=== PATIENT | female | born 1935 | race Caucasian/White ===

== ENCOUNTER 2017-06-01 15:15 | Outpatient (CLI) | payer MEDICARE, OTHER ==
[2017-06-01 12:20] LABS: BASOPHILS # (AUTO) 0.1 10^3/uL (0.0-0.1); BASOPHILS % (AUTO) 0.7 %; EOSINOPHILS # (AUTO) 0.2 10^3/uL (0.0-0.7); HGB - HEMOGLOBIN 14.5 g/dL (12.0-16.0); LYMPHOCYTES % (AUTO) 38.7 %; MEAN CORPUSCULAR HEMOGLOBIN 31.9 pg (27.0-31.0); MEAN CORPUSCULAR HGB CONC 33.1 g/dL (32.0-36.0); MEAN CORPUSCULAR VOLUME 96.4 fL (81.0-99.0); MEAN PLATELET VOLUME 9.2 fL (7.9-10.8); MONOCYTES # (AUTO) 0.6 10^3/uL (0.0-1.0); MONOCYTES % (AUTO) 7.4 %; NEUTROPHILS # (AUTO) 3.9 10^3/uL (1.5-6.6); NEUTROPHILS % (AUTO) 50.2 %; NUCLEATED RED BLOOD CELLS AUTO 0.1 /100WBC; RED BLOOD COUNT 4.56 10^6/uL (4.20-5.40); RED CELL DISTRIBUTION WIDTH 14.4 % (12.0-15.0); UNCORRECTED WHITE BLOOD COUNT 7.7 x10^3/uL; WHITE BLOOD COUNT 7.7 x10^3/uL (4.8-10.8)
[2017-06-01 12:43] LABS: ALBUMIN/GLOBULIN RATIO 1.3 (1.0-2.2); BILIRUBIN,TOTAL 0.7 mg/dL (0.2-1.0); BUN - BLOOD UREA NITROGEN 28 mg/dL (6-20); CALCIUM 8.8 mg/dL (8.5-10.3); CARBON DIOXIDE - CO2 27 mmol/L (21-32); CHLORIDE 105 mmol/L (101-111); CHOL/HDL RATIO 3.4 (<4.4); CHOLESTEROL 197 mg/dL; CREATININE 0.7 mg/dL (0.4-1.0); GFR - MDRD 81 (>89); GLUCOSE 97 mg/dL (70-100); HDL CHOLESTEROL 58 mg/dL; LDL/HDL RATIO 2.1 (<4.4); POTASSIUM 4.3 mmol/L (3.5-5.0); SODIUM 137 mmol/L (135-145); TOTAL PROTEIN 6.9 g/dL (6.7-8.2); TRIGLYCERIDES 88 mg/dL; VLDL CHOLESTEROL 18 mg/dL
== END 2017-06-01 15:16 | disposition home or self-care (01) ==
LOC: LAB.N 15:15
PROVIDERS: ATTEND Internal Medicine
DX: E78.5 Hyperlipidemia, unspecified (principal); I10 Essential (primary) hypertension; Z79.899 Other long term (current) drug therapy
CPT/HCPCS: 36415; 80053; 80061; 85025

== ENCOUNTER 2017-06-06 10:32 | Outpatient (CLI) | payer MEDICARE, OTHER ==
--- NOTE | 2017-06-07 08:35 | DEXA Report ---
DEXA: 06/06/2017 CLINICAL INDICATION: Postmenopausal. TECHNIQUE: Dual energy x-ray absorptiometry (DXA) was performed on a [employer] system. Regions measured are the AP spine, femoral neck, and, if needed, forearm. COMPARISON: None. In accordance with the International Society for Clinical Densitometry (ISCD) guidelines, data from previous exams may be reanalyzed using current recommendations and techniques. This is done to allow a more accurate basis for comparison with the current study. FINDINGS LUMBAR SPINE DATA: REGION BMD (g/cm/cm) T-SCORE Z-SCORE L1 0.783 -2.9 -1.3 L2 0.836 -3.0 -1.5 L3 0.966 -2.0 -0.4 L4 1.046 -1.3 0.3 TOTAL L1-L4 0.920 -2.2 -0.6 NOTE: All evaluable vertebrae are used for classification. HIP DATA: REGION BMD (g/cm/cm) T-SCORE Z-SCORE Neck 0.836 -1.5 0.5 TOTAL 0.860 -1.2 0.6 NOTE: The femoral neck or total proximal femur, whichever is lowest, is used for classification. IMPRESSION THE WHO CLASSIFICATION BASED ON THE INTERNATIONAL REFERENCE STANDARD: OSTEOPENIA. FRACTURE RISK: INCREASED. RECOMMENDATION: Patients with diagnosis of osteoporosis or osteopenia should have regular bone mineral density assessment. For those eligible for Medicare, routine testing is allowed once every 2 years. Testing frequency can be increased for patients who have rapidly progressing disease or for those who are receiving medical therapy to restore bone mass. COMMENT: World Health Organization (WHO) definitions for osteoporosis and osteopenia: NORMAL BMD: T-score at -1.0 or higher, fracture risk is low. OSTEOPENIA BMD: T-score between -1.0 and -2.5, fracture risk is increased. OSTEOPOROSIS BMD: T-score at -2.5 or lower, fracture risk high. National Osteoporosis Foundation recommends: 1. Obtain adequate dietary calcium (at least 1200 mg per day) and vitamin D (400 -800 international units per day). 2. Participate, as appropriate, in regular weightbearing and muscle- strengthening exercise. 3. Avoid tobacco use and reduce alcohol and caffeine intake. 4. For more detailed information see the website at www.NOF.org. MTDD
== END 2017-06-06 10:33 | disposition home or self-care (01) ==
LOC: DI 10:32
PROVIDERS: ATTEND Internal Medicine
DX: M85.89 Other specified disorders of bone density and structure, multiple sites (principal)
CPT/HCPCS: 77080

== ENCOUNTER 2018-06-26 08:07 | Outpatient (CLI) | payer MEDICARE, OTHER ==
[2018-06-26 14:37] LABS: BASOPHILS # (AUTO) 0.1 10^3/uL (0.0-0.1); BASOPHILS % (AUTO) 0.7 %; EOSINOPHILS # (AUTO) 0.5 10^3/uL (0.0-0.7); EOSINOPHILS % (AUTO) 5.9 %; HGB - HEMOGLOBIN 15.3 g/dL (12.0-16.0); LYMPHOCYTES # (AUTO) 3.2 10^3/uL (1.5-3.5); LYMPHOCYTES % (AUTO) 40.7 %; MEAN CORPUSCULAR HEMOGLOBIN 32.9 pg (27.0-31.0); MEAN CORPUSCULAR HGB CONC 33.9 g/dL (32.0-36.0); MEAN CORPUSCULAR VOLUME 96.9 fL (81.0-99.0); MEAN PLATELET VOLUME 9.2 fL (7.9-10.8); MONOCYTES # (AUTO) 0.5 10^3/uL (0.0-1.0); NEUTROPHILS # (AUTO) 3.7 10^3/uL (1.5-6.6); NEUTROPHILS % (AUTO) 46.7 %; PLT - PLATELET COUNT 460 10^3/uL (130-450); RED BLOOD COUNT 4.64 10^6/uL (4.20-5.40); RED CELL DISTRIBUTION WIDTH 15.4 % (12.0-15.0); WHITE BLOOD COUNT 7.9 x10^3/uL (4.8-10.8)
[2018-06-26 15:03] LABS: ALBUMIN 3.9 g/dL (3.2-5.5); ALBUMIN/GLOBULIN RATIO 1.2 (1.0-2.2); ALKALINE PHOSPHATASE 75 IU/L (42-121); ALT ALANINE AMINOTRANSFERASE 19 IU/L (10-60); AST ASPARTATE AMINOTRANSFERASE 23 IU/L (10-42); BILIRUBIN,TOTAL 0.7 mg/dL (0.2-1.0); BUN - BLOOD UREA NITROGEN 22 mg/dL (6-20); CALCIUM 9.1 mg/dL (8.5-10.3); CARBON DIOXIDE - CO2 28 mmol/L (21-32); CHLORIDE 105 mmol/L (101-111); CHOL/HDL RATIO 3.1 (<4.4); CHOLESTEROL 196 mg/dL; CREATININE 0.7 mg/dL (0.4-1.0); GFR - MDRD 80 (>89); GLUCOSE 92 mg/dL (70-100); HDL CHOLESTEROL 63 mg/dL; LDL CHOLESTEROL,CALCULATED 115 mg/dL; LDL/HDL RATIO 1.8 (<4.4); SODIUM 140 mmol/L (135-145); TOTAL PROTEIN 7.1 g/dL (6.7-8.2); VLDL CHOLESTEROL 18 mg/dL
== END 2018-06-26 23:59 | disposition home or self-care (01) ==
LOC: LAB.N 08:07
PROVIDERS: ATTEND Internal Medicine
DX: M81.0 Age-related osteoporosis without current pathological fracture (principal); K21.9 Gastro-esophageal reflux disease without esophagitis; E78.5 Hyperlipidemia, unspecified; Z79.899 Other long term (current) drug therapy
CPT/HCPCS: 36415; 80053; 80061; 82306; 83721; 84443; 85025

== ENCOUNTER 2018-06-27 14:25 | Outpatient (CLI) | payer MEDICARE, OTHER | END 2018-06-27 23:59 | disposition home or self-care (01) | LOC: LAB.N 14:25 | PROVIDERS: ATTEND Internal Medicine | DX: R01.1 Cardiac murmur, unspecified (principal); G45.9 Transient cerebral ischemic attack, unspecified | CPT/HCPCS: 36415; 85651; 86140 ==

== ENCOUNTER 2018-06-29 09:03 | Outpatient (CLI) | payer MEDICARE, OTHER ==
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
== END 2018-06-29 09:04 | disposition home or self-care (01) ==
LOC: DI 09:03
PROVIDERS: ATTEND Internal Medicine
DX: R01.1 Cardiac murmur, unspecified (principal); G45.9 Transient cerebral ischemic attack, unspecified
CPT/HCPCS: 70450; 93306

== ENCOUNTER 2018-07-06 18:50 | Outpatient (CLI) | payer MEDICARE, OTHER ==
--- NOTE | 2018-07-08 09:29 | Ultrasound Report ---
Reason: CARDIAC MURMUR, UNSPECIFIED Procedure Date: 07/06/2018 Accession Number: [id number] / [id number] Procedure: US - Carotid Doppler Complete CPT Code: FULL RESULT: EXAM: BILATERAL CAROTID AND VERTEBRAL ARTERY DUPLEX DOPPLER ULTRASOUND: EXAM DATE: 07/06/2018 07:42 PM CLINICAL HISTORY: Cardiac murmur, unspecified. COMPARISON: None. TECHNIQUE: Grayscale imaging, color Doppler, and duplex spectral Doppler were used to evaluate the carotid and vertebral arteries bilaterally. Static images were obtained. FINDINGS: No significant plaque is identified in the right or left common or internal carotid arteries. Normal antegrade flow is present in bilateral vertebral arteries. VELOCITIES (cm/sec): VELOCITIES: Right: CCA Mid: PSV 61.6 cm/sec. CCA Dist: PSV 46.7 cm/sec ICA Prox: PSV 57.0 cm/sec, EDV 28.3 cm/sec. ICA Mid: PSV 61.5 cm/sec, EDV 33.9 cm/sec. ICA Dist: PSV 69.7 cm/sec, EDV 36.5 cm/sec. ECA: PSV 61.1 cm/sec. Vertebral Artery: PSV 45.7 cm/sec. RVA flow direction: xAntegrade. ICA/CCA Ratio: 1.13, . Left: CCA Mid: PSV 67.0 cm/sec. CCA Dist: PSV 70.5 cm/sec. ICA Prox: PSV 39.0 cm/sec, EDV 21.2 cm/sec. ICA Mid: PSV 48.2 cm/sec, EDV 28.3 cm/sec. ICA Dist: PSV 61.6 cm/sec, EDV 37.9 cm/sec. ECA: PSV 66.4 cm/sec. Vertebral Artery: PSV 40.3 cm/sec. cm/sec. LVA flow direction: xAntegrade. ICA/CCA Ratio: 0.87. ICA diameter stenosis: Right: <50% by velocity and <70% by NASCET criteria. Left: <50% by velocity and <70% by NASCET criteria. IMPRESSION: 1. No significant bilateral carotid artery plaquing. 2. In the right carotid artery there are no elevated carotid artery velocities to suggest hemodynamically significant stenosis. 3. In the left carotid artery there are no elevated carotid artery velocities to suggest hemodynamically significant stenosis. 4. Normal antegrade flow is present in bilateral vertebral arteries. General Recommendations: Stenosis =50% ICA - Follow-up ultrasound 6-12 months Stenosis <50% ICA - High Risk Patient with plaque - Follow-up ultrasound 1-2 years Normal Study but High Risk Patient - Follow-up ultrasound 3-5 years Management recommendations and diagnostic criteria are based on current IAC endorsed standards in Carotid Artery Stenosis: Grayscale and Doppler Ultrasound Diagnosis. Validated velocity measurements with angiographic measurements and velocity criteria are extrapolated from diameter data as defined by the Society of Radiologists in Ultrasound Consensus Conference Radiology 2003; 229;340-346. RADIA
== END 2018-07-06 18:51 | disposition home or self-care (01) ==
LOC: DI 18:50
PROVIDERS: ATTEND Internal Medicine
DX: G45.9 Transient cerebral ischemic attack, unspecified (principal); R01.1 Cardiac murmur, unspecified
CPT/HCPCS: 93880

== ENCOUNTER 2018-08-04 07:47 | Outpatient (CLI) | payer MEDICARE, OTHER ==
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
== END 2018-08-04 07:48 | disposition home or self-care (01) ==
LOC: DI 07:47
PROVIDERS: ATTEND Internal Medicine
DX: Z12.31 Encounter for screening mammogram for malignant neoplasm of breast (principal)
CPT/HCPCS: 77063; 77067

== ENCOUNTER 2018-08-29 08:00 | Outpatient (CLI) | payer MEDICARE, OTHER ==
[2018-08-29 13:05] LABS: ALT ALANINE AMINOTRANSFERASE 18 IU/L (10-60); AST ASPARTATE AMINOTRANSFERASE 24 IU/L (10-42); LDL CHOLESTEROL,DIRECT 84 mg/dL
== END 2018-08-29 23:59 | disposition home or self-care (01) ==
LOC: LAB.N 08:00
PROVIDERS: ATTEND Internal Medicine
DX: G45.9 Transient cerebral ischemic attack, unspecified (principal)
CPT/HCPCS: 36415; 83721; 84450; 84460

== ENCOUNTER 2019-04-09 16:14 | Outpatient (CLI) | payer MEDICARE, OTHER ==
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
== END 2019-04-09 16:15 | disposition home or self-care (01) ==
LOC: DI 16:14
PROVIDERS: ATTEND Podiatrist
DX: M79.674 Pain in right toe(s) (principal); M79.671 Pain in right foot

== ENCOUNTER 2019-06-27 08:17 | Outpatient (CLI) | payer MEDICARE, OTHER ==
[2019-06-27 13:00] LABS: BASOPHILS # (AUTO) 0.1 10^3/uL (0.0-0.1); EOSINOPHILS # (AUTO) 0.9 10^3/uL (0.0-0.7); EOSINOPHILS % (AUTO) 8.5 %; HGB - HEMOGLOBIN 15.9 g/dL (12.0-16.0); LYMPHOCYTES # (AUTO) 3.7 10^3/uL (1.5-3.5); LYMPHOCYTES % (AUTO) 35.1 %; MEAN CORPUSCULAR HEMOGLOBIN 30.9 pg (27.0-31.0); MEAN CORPUSCULAR HGB CONC 31.5 g/dL (32.0-36.0); MEAN CORPUSCULAR VOLUME 98.1 fL (81.0-99.0); MEAN PLATELET VOLUME 9.8 fL (7.9-10.8); MONOCYTES # (AUTO) 0.6 10^3/uL (0.0-1.0); MONOCYTES % (AUTO) 5.3 %; NEUTROPHILS # (AUTO) 5.3 10^3/uL (1.5-6.6); NEUTROPHILS % (AUTO) 49.8 %; PLT - PLATELET COUNT 682 10^3/uL (130-450); RED BLOOD COUNT 5.14 10^6/uL (4.20-5.40); RED CELL DISTRIBUTION WIDTH 16.6 % (12.0-15.0); WHITE BLOOD COUNT 10.7 x10^3/uL (4.8-10.8)
[2019-06-27 13:19] LABS: ALBUMIN 3.8 g/dL (3.2-5.5); ALBUMIN/GLOBULIN RATIO 1.1 (1.0-2.2); BILIRUBIN,TOTAL 0.8 mg/dL (0.2-1.0); CALCIUM 9.7 mg/dL (8.5-10.3); CREATININE 0.7 mg/dL (0.4-1.0); TOTAL PROTEIN 7.4 g/dL (6.7-8.2)
== END 2019-06-27 23:59 | disposition home or self-care (01) ==
LOC: LAB.N 08:17
PROVIDERS: ATTEND Family Medicine
DX: M81.0 Age-related osteoporosis without current pathological fracture (principal); K21.9 Gastro-esophageal reflux disease without esophagitis; E78.5 Hyperlipidemia, unspecified; I10 Essential (primary) hypertension
CPT/HCPCS: 36415; 80053; 84443; 85025

== ENCOUNTER 2019-07-26 18:57 | Outpatient (CLI) | payer OTHER, MEDICARE | END 2019-07-26 18:58 | disposition critical access hospital (66) | LOC: EMS 18:57 | PROVIDERS: ATTEND Surgery | DX: S21.4 Open wound of back wall of thorax with penetration into thoracic cavity (principal); R07.9 Chest pain, unspecified; R20.0 Anesthesia of skin; W32.0XXA Accidental handgun discharge, initial encounter; Y92.511 Restaurant or cafe as the place of occurrence of the external cause | CPT/HCPCS: A0425; A0427 ==

== ENCOUNTER 2019-07-26 19:11 | Emergency (ER) | payer OTHER, MEDICARE ==
[2019-07-26] MEDS ORDERED: ceFAZolin 1 GM in SODIUM CHLORIDE 0.9% MINIBAG 100 ML IV STA (19:17)
[2019-07-26] MEDS ORDERED: MORPHINE 2 MG/ML CARPUJECT IVP STA (19:17)
[2019-07-26] MEDS ORDERED: TETANUS/DIPHTHERIA/PERTUSSIS 0.5 ML SYRINGE IM ONE (19:24)
[2019-07-26] MEDS ORDERED: IOVERSOL 320 100 ML VIAL IVP ONE ×2 (19:42)
[2019-07-26] MEDS ORDERED: HYDROmorphone 1 MG/ML CARPUJECT IVP STA (19:44)
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
[2019-07-26 20:00] LABS: BASOPHILS # (AUTO) 0.2 10^3/uL (0.0-0.1); BASOPHILS % (AUTO) 0.9 %; EOSINOPHILS # (AUTO) 0.5 10^3/uL (0.0-0.7); EOSINOPHILS % (AUTO) 2.1 %; HGB - HEMOGLOBIN 15.1 g/dL (12.0-16.0); LYMPHOCYTES # (AUTO) 5.9 10^3/uL (1.5-3.5); LYMPHOCYTES % (AUTO) 27.2 %; MEAN CORPUSCULAR HEMOGLOBIN 31.6 pg (27.0-31.0); MEAN CORPUSCULAR HGB CONC 31.5 g/dL (32.0-36.0); MEAN CORPUSCULAR VOLUME 100.2 fL (81.0-99.0); MEAN PLATELET VOLUME 9.9 fL (7.9-10.8); MONOCYTES # (AUTO) 0.8 10^3/uL (0.0-1.0); MONOCYTES % (AUTO) 3.5 %; NEUTROPHILS # (AUTO) 14.1 10^3/uL (1.5-6.6); NEUTROPHILS % (AUTO) 65.4 %; PLT - PLATELET COUNT 570 10^3/uL (130-450); RED BLOOD COUNT 4.78 10^6/uL (4.20-5.40); RED CELL DISTRIBUTION WIDTH 16.9 % (12.0-15.0); WHITE BLOOD COUNT 21.5 x10^3/uL (4.8-10.8)
[2019-07-26] MEDS ORDERED: SODIUM CHLORIDE 0.9% 1,000 ML IV ONE ×2 (20:04)
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
[2019-07-26 20:19] VITALS: BP 88/68
[2019-07-26 20:29] LABS: PLATELET ESTIMATE, MANUAL NORMAL (130-450,000) (NORMAL); PLATELET MORPHOLOGY NORMAL APPEARANCE (NORMAL); RBC MORPHOLOGY (MULTIPLE) 1+ ANISOCYTOSIS (NORMAL)
[2019-07-26 20:30] LABS: DIFFERENTIAL COMMENT MANUAL=AUTO DIFF
[2019-07-26 20:36] LABS: ALBUMIN 3.5 g/dL (3.2-5.5); ALBUMIN/GLOBULIN RATIO 1.3 (1.0-2.2); BILIRUBIN,TOTAL 0.4 mg/dL (0.2-1.0); CALCIUM 8.6 mg/dL (8.5-10.3); CREATININE 0.7 mg/dL (0.4-1.0); TOTAL PROTEIN 6.3 g/dL (6.7-8.2)
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
== END 2019-07-26 20:46 | disposition short-term general hospital (02) ==
LOC: EDUNIT# → ED 19:11
DX: S27.321A Contusion of lung, unilateral, initial encounter (principal); S22.41XA Multiple fractures of ribs, right side, initial encounter for closed fracture; R04.2 Hemoptysis; J93.9 Pneumothorax, unspecified; I95.9 Hypotension, unspecified; W32.0XXA Accidental handgun discharge, initial encounter; Y93.89 Activity, other specified; Y92.511 Restaurant or cafe as the place of occurrence of the external cause; I10 Essential (primary) hypertension
CPT/HCPCS: 36415; 71045; 71260; 80053; 83690; 85025; 86850; 86900; 86901; 90471; 90715; 96374; 96375; 99284; 99285; J1170; Q9967

== ENCOUNTER 2019-08-01 12:37 | Emergency (ER) | payer MEDICARE, OTHER ==
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
[2019-08-01 13:37] LABS: BASOPHILS # (AUTO) 0.1 10^3/uL (0.0-0.1); BASOPHILS % (AUTO) 0.7 %; EOSINOPHILS # (AUTO) 0.6 10^3/uL (0.0-0.7); EOSINOPHILS % (AUTO) 5.1 %; LYMPHOCYTES # (AUTO) 2.4 10^3/uL (1.5-3.5); LYMPHOCYTES % (AUTO) 19.9 %; MEAN CORPUSCULAR HEMOGLOBIN 31.4 pg (27.0-31.0); MEAN CORPUSCULAR HGB CONC 33.3 g/dL (32.0-36.0); MEAN CORPUSCULAR VOLUME 94.5 fL (81.0-99.0); MEAN PLATELET VOLUME 9.8 fL (7.9-10.8); MONOCYTES # (AUTO) 0.9 10^3/uL (0.0-1.0); MONOCYTES % (AUTO) 7.8 %; NEUTROPHILS # (AUTO) 7.9 10^3/uL (1.5-6.6); NEUTROPHILS % (AUTO) 65.9 %; PLT - PLATELET COUNT 611 10^3/uL (130-450); RED BLOOD COUNT 5.09 10^6/uL (4.20-5.40); RED CELL DISTRIBUTION WIDTH 16.3 % (12.0-15.0)
[2019-08-01 13:53] LABS: ALBUMIN 3.4 g/dL (3.2-5.5); CALCIUM 9.1 mg/dL (8.5-10.3); CREATININE 0.6 mg/dL (0.4-1.0); TOTAL PROTEIN 6.7 g/dL (6.7-8.2)
--- NOTE | 2019-08-01 13:54 | XRAY Report ---
Reason: drainage from chest tube site Procedure Date: 08/01/2019 Accession Number: [id number] / [id number] Procedure: XR - Chest 2 View X-Ray CPT Code: 20935 Final Report FULL RESULT: EXAM: CHEST RADIOGRAPHY EXAM DATE: 08/01/2019 01:37 PM. CLINICAL HISTORY: Drainage from chest tube site. COMPARISON: 07/26/2019. TECHNIQUE: 2 views. FINDINGS: Lungs/Pleura: Interval decrease in density of the right lower lung consolidation. Interval development of linear consolidative changes at the left lung base, potentially subsegmental atelectasis. Likely trace right pleural effusion as well as trace left effusion. No convincing pneumothorax or pulmonary edema. Mediastinum: Heart and mediastinal contours are unremarkable. Other: There is right-sided subcutaneous emphysema. IMPRESSION: Interval improvement in the right lung consolidation. Right-sided subcutaneous emphysema. Interval development of left-sided pulmonary opacities, potentially atelectasis. RADIA
[2019-08-01 14:22] VITALS: BP 166/71
== END 2019-08-01 14:25 | disposition home or self-care (01) ==
LOC: ED 12:37
DX: S21.131A Puncture wound without foreign body of right front wall of thorax without penetration into thoracic cavity, initial encounter (principal); S27.321A Contusion of lung, unilateral, initial encounter; W34.00XA Accidental discharge from unspecified firearms or gun, initial encounter; I10 Essential (primary) hypertension
CPT/HCPCS: 36415; 71046; 80053; 83690; 85025; 99284

== ENCOUNTER 2019-09-10 14:45 | Outpatient (CLI) | payer MEDICARE, OTHER ==
--- NOTE | 2019-09-11 14:26 | XRAY Report ---
Reason: LUNG INVOLVEMENT IN OTHER DISEASES, ARTERIAL THROM Procedure Date: 09/10/2019 Accession Number: [id number] / [id number] Procedure: XR - Chest 3 View X-Ray CPT Code: 03020 Final Report FULL RESULT: EXAM: CHEST RADIOGRAPHY EXAM DATE: 09/10/2019 03:01 PM. CLINICAL HISTORY: LUNG INVOLVEMENT IN OTHER DISEASES, ARTERIAL THROM. COMPARISON: CHEST 2 VIEW 08/01/2019 1:33 PM CHEST W/ 07/26/2019 7:32 PM - - - - - 07/26/2019 7:05 PM. TECHNIQUE: 2 views. FINDINGS: Lungs/Pleura: Linear lateral left basilar atelectasis and/or scarring. Decreasing right mid to lower lung airspace opacity. No pneumothorax or pleural effusion. Mediastinum: Atherosclerotic aortic calcification. Other: None. IMPRESSION: 1. Posttraumatic parenchymal contusion involving right upper and lower lobes has nearly resolved. RADIA
== END 2019-09-10 14:46 | disposition home or self-care (01) ==
LOC: DI 14:45
PROVIDERS: ATTEND Family Medicine
DX: S27.321A Contusion of lung, unilateral, initial encounter (principal); J99 Respiratory disorders in diseases classified elsewhere; I74.9 Embolism and thrombosis of unspecified artery; W34.00XA Accidental discharge from unspecified firearms or gun, initial encounter; E78.5 Hyperlipidemia, unspecified; I10 Essential (primary) hypertension
CPT/HCPCS: 71047

== ENCOUNTER 2019-11-22 14:07 | Outpatient (CLI) | payer MEDICARE, OTHER ==
--- NOTE | 2019-11-23 15:45 | XRAY Report ---
Reason: PAIN AND EDEMA RT ANKLE Procedure Date: 11/22/2019 Accession Number: [id number] / [id number] Procedure: XR - Ankle 3 View RT CPT Code: Final Report FULL RESULT: EXAM: RIGHT ANKLE RADIOGRAPHY EXAM DATE: 11/22/2019 02:20 PM. CLINICAL HISTORY: PAIN AND EDEMA RT ANKLE. COMPARISON: FOOT 3 VIEW RT 04/09/2019 4:17 PM. TECHNIQUE: 3 nonweightbearing views. FINDINGS: Bones: No fractures or bone lesions. There is moderate spurring at the Achilles tendon insertion on the posterior calcaneus. Joints: Normal. No effusion. No subluxations. The ankle mortise is normally aligned. Soft Tissues: Unremarkable. No focal soft tissue swelling appreciated. IMPRESSION: No fracture or other acute osseous abnormality of the ankle. RADIA
== END 2019-11-22 14:08 | disposition home or self-care (01) ==
LOC: DI 14:07
PROVIDERS: ATTEND Podiatrist
DX: M25.571 Pain in right ankle and joints of right foot (principal)

== ENCOUNTER 2019-12-17 17:09 | Outpatient (CLI) | payer MEDICARE, OTHER ==
--- NOTE | 2019-12-18 08:38 | Ultrasound Report ---
Reason: PERIPHERAL VASCULAR DISEASE Procedure Date: 12/17/2019 Accession Number: [id number] / [id number] Procedure: US - Duplex Lwr Ext Arterial Bilat CPT Code: Final Report FULL RESULT: PROCEDURE: Duplex Lwr Ext Arterial Bilat INDICATIONS: PERIPHERAL VASCULAR DISEASE TECHNIQUE: Color and pulse Doppler interrogation was performed of both lower extremity arterial systems, with image documentation. COMPARISON: None FINDINGS: Right lower extremity: Common femoral artery: 160 cm/sec, with biphasic flow. Deep femoral artery: 96 cm/sec, with biphasic flow. Proximal superficial femoral artery: 97 cm/sec, with biphasic flow. Mid superficial femoral artery: 98 cm/sec, with biphasic flow. Distal superficial femoral artery: 113 cm/sec, with biphasic flow. Popliteal artery: 67 cm/sec, with monophasic and biphasic flow. Posterior tibial artery: 32 cm/sec, with monophasic flow. Anterior tibial artery/dorsalis pedis: 34 cm/sec, with monophasic flow. Rodríguez-scale imaging description: Moderate diffuse plaque Left lower extremity: Common femoral artery: 103 cm/sec, with biphasic flow. Deep femoral artery: 82 cm/sec, with biphasic flow. Proximal superficial femoral artery: 100 cm/sec, with biphasic flow. Mid superficial femoral artery: 103 cm/sec, with biphasic flow. Distal superficial femoral artery: 125 cm/sec, with biphasic flow. Popliteal artery: 85 cm/sec, with biphasic flow. Posterior tibial artery: 96 cm/sec, with monophasic flow. Anterior tibial artery/dorsalis pedis: 71 cm/sec, with monophasic flow. Rodríguez-scale imaging description: Moderate diffuse plaque IMPRESSION: 1. No evidence of superficial femoral artery stenosis bilaterally. 2. Monophasic waveforms within the right popliteal artery as well as the bilateral runoff vessels, suggestive of hemodynamically significant stenoses. Reviewed by: Niecy Mancera MD on 12/18/2019 8:36 AM PDT Approved by: Niecy Mancera MD on 12/18/2019 8:36 AM PDT Station ID: [id number]
== END 2019-12-17 17:10 | disposition home or self-care (01) ==
LOC: DI 17:09
PROVIDERS: ATTEND Podiatrist
DX: I73.9 Peripheral vascular disease, unspecified (principal)
CPT/HCPCS: 93925

== ENCOUNTER 2021-06-21 10:50 | Emergency (ER) | payer MEDICARE, OTHER ==
[2021-06-21 11:23] VITALS: BP 159/91
--- NOTE | 2021-06-21 12:09 | ED Physician Documentation ---
PD HPI UPPER EXT INJURY - Stated complaint Stated Complaint: L ARM OPEN INCESION - Chief complaint Chief Complaint: Ext Problem - History obtained from History obtained from: Patient - Additonal information Additional information: Patient comes emergency department chief complaint of "I am oozing from my surgical wound." Patient states that she just had a arterial stent placed in her left upper extremity about 5 days ago by vascular surgery over at [place], secondary to a progressively occluding subclavian artery. Patient states that overall, she has been doing fairly well since the surgery, but began to notice oozing from the incision a couple of days ago. Patient is on Eliquis but stopped the Eliquis yesterday over concerns about the oozing. She believes she is on Eliquis because she had A. 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 Patient states that she has not been bleeding a lot from the woun d, but it just seems to be a slow and steady oozing. She denies any expanding mass in her left arm. She does have moderate swelling which she has noticed since the surgery. She also has extensive ecchymosis on the arm which she noticed the day after the surgery. No fevers or chills. No purulent drainage from the wound that she has noticed. Patient does have caregivers at home that help her with dressing changes. Patient states she does have to use her arm a lot because she does not have legs. She uses her arms both for crutches and 4 wheeling her wheelchair. Patient denies any other complaints at this time. Review of Systems Ten Systems: 10 systems reviewed and negative Constitutional: reports: Reviewed and negative Eyes: reports: Reviewed and negative Ears: reports: Reviewed and negative Nose: reports: Reviewed and negative Throat: reports: Reviewed and negative Cardiac: reports: Reviewed and negative Respiratory: reports: Reviewed and negative GI: reports: Reviewed and negative : reports: Reviewed and negative Skin: reports: Other (Postoperative wound dehiscence/bleeding) Musculoskeletal: reports: Reviewed and negative Neurologic: reports: Reviewed and negative Psychiatric: reports: Reviewed and negative Endocrine: reports: Reviewed and negative Immunocompromised: reports: Reviewed and negative PD PAST MEDICAL HISTORY - Past Medical History Cardiovascular: Hypertension, High cholesterol Musculoskeletal: Osteoporosis - Past Surgical History Past Surgical History: No HEENT: Cataracts, Tonsil/Adenoidectomy - Present Medications Home Medications: Ambulatory Orders Medication Instructions Recorded Confirmed lisinopriL [Lisinopril] 10 mg PO 07/26/19 - Allergies Allergies/Adverse Reactions: Allergies Allergy/AdvReac Type Severity Reaction Status Date / Time Beta-Blockers Allergy Itching Verified 06/21/21 11:11 (Beta-Adrenergic Bloc latex Allergy Itching Verified 08/01/19 12:44 Penicillins Allergy Unknown Verified 08/01/19 12:44 - Social History Does the pt smoke?: No Smoking Status: Never smoker PD ED PE NORMAL - Vitals Vital signs reviewed: Yes - General General: Alert and oriented X 3, No acute distress, Well developed/nourished - HEENT HEENT: Atraumatic, PERRL, EOMI, Moist mucous membranes - Neck Neck: Supple, no meningeal sign - Cardiac Cardiac: Strong equal pulses - Respiratory Respiratory: No respiratory distress - Derm Derm: Warm and dry, Other (Extensive ecchymosis left upper extremity. Well- healing vertical incision site with what appears to be subcuticular sutures. 4 mm area of wound dehiscence and slow oozing located in the middle of the incision. No erythema or induration that is localized to the dehisced area. 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 I discussed with the patient that I do not find any evidence of infection, and there is no pulsatile mass to suggest an arterial leakage. Additionally, the patient has a strong pulse with good capillary refill distally. I did discuss with the patient that most likely, being on the Eliquis has kept the wound oozing a bit and may have delayed healing in that 1 spot. The patient is currently off of her Eliquis which should help with this, but I have cautioned the patient about staying off Eliquis for very long, as an oozing wound is a small inconvenience, but being off Eliquis can lead to serious problems if she stays off too long. I have advised the patient to follow-up as soon as possible with her vascular surgeon. She does have an appointment coming up on the 16th for postop check. I have also advised patient to call her primary care physician to discuss the issue with Eliquis. The dehisced area has been reinforced with Steri-Strips, and bleeding is controlled. We have discussed the usual indications for return Departure - Departure Disposition: 01 Home, Self Care Clinical Impression: Post-op bleeding Qualifiers: Surgical complication system/body Area: skin Procedure type: non-dermatologic Qualified Code(s): L76.22 - Postprocedural hemorrhage of skin and subcutaneous tissue following other procedure Condition: Stable Instructions: ED Wound Check Post Op Bleeding Comments: And seePlease call your surgeon's office to touch base you need to be seen sooner than the 16th. You may reapply the Steri-Strips as needed. Is important part and that you talk to your doctors about how long to stay off the Eliquis, and I would suggest that it very least, once your wound is solidly scabbed over, you should get back on the medication, is staying off of it could lead to serious consequences.
== END 2021-06-21 12:23 | disposition home or self-care (01) ==
LOC: ED 10:50
DX: L76.22 Postprocedural hemorrhage of skin and subcutaneous tissue following other procedure (principal); Y83.8 Other surgical procedures as the cause of abnormal reaction of the patient, or of later complication, without mention of misadventure at the time of the procedure; Y71.8 Miscellaneous cardiovascular devices associated with adverse incidents, not elsewhere classified; Z89.612 Acquired absence of left leg above knee; Z89.611 Acquired absence of right leg above knee
CPT/HCPCS: 99281; 99282

== ENCOUNTER 2021-07-06 15:35 | Emergency (ER) | payer MEDICARE, OTHER ==
[2021-07-06] MEDS ORDERED: HYDROcod/ACETAM 5/325 MG TABLET PO STA (16:27)
--- NOTE | 2021-07-06 17:10 | XRAY Report ---
PROCEDURE: Hand 3 View LT INDICATIONS: hand/wrist injury TECHNIQUE: 3 views of the hand(s) acquired. COMPARISON: None FINDINGS: Bones: Diffuse demineralization. No acute fractures or dislocations. There has been resection of th e trapezium. Moderate degenerative changes are present at the first metacarpophalangeal joint. No mariel picious bony lesions. Soft tissues: No suspicious soft tissue calcifications. IMPRESSION: No visible fractures. Reviewed by: Danya Vickers MD on 07/06/2021 5:09 PM [facility] Approved by: Danya Vickers MD on 07/06/2021 5:09 PM [facility] Station ID: [id number]
--- NOTE | 2021-07-06 17:11 | XRAY Report ---
PROCEDURE: Wrist 4 View LT INDICATIONS: hand/wrist injury TECHNIQUE: 4 views of the wrist were acquired. COMPARISON: None FINDINGS: Bones: Diffuse demineralization. No fractures or dislocations. Prior resection of the trapezium. Os teoarthritic change at the first MCP joint. No suspicious bony lesions. Scaphoid view: Intact scaphoid. Soft tissues: No suspicious soft tissue calcifications. IMPRESSION: 1. No acute fracture. 2. Prior trapezium resection. 3. Demineralization and first ray osteoarthritic change. Reviewed by: Danya Vickers MD on 07/06/2021 5:10 PM PST Approved by: Danya Vickers MD on 07/06/2021 5:10 PM PST Station ID: [id number]
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
[2021-07-06 18:16] VITALS: BP 136/71
== END 2021-07-06 18:21 | disposition home or self-care (01) ==
LOC: ED 15:35
DX: S69.92XA Unspecified injury of left wrist, hand and finger(s), initial encounter (principal); X58.XXXA Exposure to other specified factors, initial encounter; I10 Essential (primary) hypertension; Z86.718 Personal history of other venous thrombosis and embolism; Z79.01 Long term (current) use of anticoagulants; I73.9 Peripheral vascular disease, unspecified; Z89.612 Acquired absence of left leg above knee; Z89.611 Acquired absence of right leg above knee
CPT/HCPCS: 73110; 73130; 99283; A9270

== ENCOUNTER 2021-07-18 02:02 | Outpatient (CLI) | payer MEDICARE, OTHER | END 2021-07-18 02:03 | disposition EMS.NT | LOC: EMS 02:02 | DX: R11.0 Nausea (principal) ==

== ENCOUNTER 2021-10-01 08:05 | Outpatient (CLI) | payer MEDICARE, OTHER ==
[2021-10-01 12:04] LABS: BASOPHILS # (AUTO) 0.5 10^3/uL (0.0-0.1); BASOPHILS % (AUTO) 1.4 %; EOSINOPHILS # (AUTO) 2.2 10^3/uL (0.0-0.7); EOSINOPHILS % (AUTO) 5.5 %; HCT - HEMATOCRIT 50.8 % (37.0-47.0); LYMPHOCYTES # (AUTO) 5.1 10^3/uL (1.5-3.5); MEAN CORPUSCULAR HEMOGLOBIN 26.8 pg (27.0-31.0); MEAN CORPUSCULAR HGB CONC 31.5 g/dL (32.0-36.0); MEAN CORPUSCULAR VOLUME 85.2 fL (81.0-99.0); MEAN PLATELET VOLUME 10.6 fL (7.9-10.8); MONOCYTES # (AUTO) 1.5 10^3/uL (0.0-1.0); MONOCYTES % (AUTO) 3.8 %; NEUTROPHILS # (AUTO) 29.7 10^3/uL (1.5-6.6); NEUTROPHILS % (AUTO) 75.4 %; RED BLOOD COUNT 5.96 10^6/uL (4.20-5.40); RED CELL DISTRIBUTION WIDTH 21.2 % (12.0-15.0)
[2021-10-01 12:16] LABS: ALBUMIN/GLOBULIN RATIO 1.2 (1.0-2.2); ALKALINE PHOSPHATASE 142 IU/L (42-121); ALT ALANINE AMINOTRANSFERASE 22 IU/L (10-60); AST ASPARTATE AMINOTRANSFERASE 31 IU/L (10-42); BILIRUBIN,TOTAL 0.7 mg/dL (0.2-1.0); BUN - BLOOD UREA NITROGEN 32 mg/dL (6-20); CALCIUM 9.4 mg/dL (8.5-10.3); CARBON DIOXIDE - CO2 25 mmol/L (21-32); CHLORIDE 103 mmol/L (101-111); CHOL/HDL RATIO 2.4 (<4.4); CHOLESTEROL 119 mg/dL; CREATININE 0.7 mg/dL (0.4-1.0); GFR - MDRD 80 (>89); GLUCOSE 83 mg/dL (70-100); HDL CHOLESTEROL 49 mg/dL; LDL CHOLESTEROL,CALCULATED 51 mg/dL; POTASSIUM 4.8 mmol/L (3.5-5.0); SODIUM 139 mmol/L (135-145); TOTAL PROTEIN 7.4 g/dL (6.7-8.2); TRIGLYCERIDES 96 mg/dL; VLDL CHOLESTEROL 19 mg/dL
[2021-10-01 12:20] LABS: THYROID STIMULATING HORMONE 2.08 uIU/mL (0.34-5.60)
[2021-10-01 12:43] LABS: PLT - PLATELET COUNT 2911 10^3/uL (130-450); WHITE BLOOD COUNT 39.4 x10^3/uL (4.8-10.8)
[2021-10-01 13:42] LABS: RBC MORPHOLOGY (MULTIPLE) 1+ ANISOCYTOSIS (NORMAL)
[2021-10-01 13:43] LABS: DIFFERENTIAL COMMENT MANUAL=AUTO DIFF; PLATELET ESTIMATE, MANUAL INCREASED (>450,000) (NORMAL); PLATELET MORPHOLOGY NORMAL APPEARANCE (NORMAL); WBC MORPHOLOGY (MULTIPLE) NORMAL APPEARANCE (NORMAL)
== END 2021-10-01 08:06 | disposition home or self-care (01) ==
LOC: LAB.N 08:05
PROVIDERS: ATTEND Family Medicine
DX: Z00.00 Encounter for general adult medical examination without abnormal findings (principal); I48.0 Paroxysmal atrial fibrillation; G54.6 Phantom limb syndrome with pain; E78.5 Hyperlipidemia, unspecified; I10 Essential (primary) hypertension; Z89.612 Acquired absence of left leg above knee; I74.9 Embolism and thrombosis of unspecified artery
CPT/HCPCS: 36415; 80053; 80061; 83721; 84443; 85025; 86140

== ENCOUNTER 2021-10-02 10:39 | Outpatient (CLI) | payer MEDICARE, OTHER ==
--- NOTE | 2021-10-02 11:57 | XRAY Report ---
PROCEDURE: Femur 2V LT INDICATIONS: LEUKOCYTOSIS; THROMBOCYTOSIS; LEG AMPUTATION ABOVE KNEE, LEFT TECHNIQUE: 2 views of the femur were acquired. COMPARISON: None. FINDINGS: Bones: An above the knee amputation is seen. Mild irregularity is seen of the stump of the femur, wit h mild lucency seen on one image. No fractures or dislocations are seen. Soft tissues: Soft tissue swelling and irregularity can be seen of the stump. Atherosclerotic calcifi cation is seen. IMPRESSION: Findings moderately suspicious for osteomyelitis of the distal femur stump. If there is strong clinical concern for developing osteomyelitis in this patient with this given hist ory, then please consider a dedicated MRI (without and with contrast) for further evaluation (assumin g that there is no contraindication). Reviewed by: Jomar Back MD on 10/02/2021 10:55 AM YOBANY Approved by: Jomar Back MD on 10/02/2021 10:55 AM YOBANY Station ID: [id number]
== END 2021-10-02 10:40 | disposition home or self-care (01) ==
LOC: DI.N 10:39
PROVIDERS: ATTEND Nurse Practitioner Family
DX: D72.829 Elevated white blood cell count, unspecified (principal); D47.3 Essential (hemorrhagic) thrombocythemia; Z89.612 Acquired absence of left leg above knee; R93.6 Abnormal findings on diagnostic imaging of limbs

== ENCOUNTER 2021-10-26 08:02 | Outpatient (CLI) | payer MEDICARE, OTHER ==
--- NOTE | 2021-10-26 10:12 | Ultrasound Report ---
PROCEDURE: Abdominal ultrasound, complete INDICATIONS: ESSENTIAL (HEMORRHAGIC) THROMBOCYTHEMIA TECHNIQUE: Real-time scanning was performed of the abdominal and retroperitoneal organs, with image documentatio n. COMPARISON: None. FINDINGS: Liver: Liver is normal in size and heterogenous in echotexture. Gallbladder: Sonolucent without color wall thickening or pericholecystic fluid Biliary ducts: Intrahepatic bile ducts are non-dilated. Extrahepatic bile duct caliber measures 4.1 mm. Normal is 6-7 mm or less in diameter, or 10 mm or less post-cholecystectomy. Pancreas: Visualized portions of the pancreas are sonographically normal. Spleen: Spleen is normal in size and homogeneous in echotexture. Kidneys: Kidneys are normal in size and echotexture. Right kidney measures 8.0 cm long; left kidney measures 11.6 cm long. No hydronephrosis or nephrolithiasis. No solid masses. Incidental note is made of echogenic left renal cortex Aorta: Visualized aorta is normal in caliber at less than 3 cm. Iliacs: Nonvisualized IVC: Intrahepatic inferior vena cava is patent. Miscellaneous: No free abdominal fluid. IMPRESSION: 1. Left renal echogenic cortex may reflect medical renal disease. No evidence of obstructive uropathy bilaterally 2. Hepatic fatty infiltration Reviewed by: Kevin Varela MD on 10/26/2021 9:11 AM YOBANY Approved by: Kevin Varela MD on 10/26/2021 9:11 AM YOBANY Station ID: [id number]
--- NOTE | 2021-10-26 10:15 | Ultrasound Report ---
PROCEDURE: Soft tissue ultrasound, limited INDICATIONS: LEFT STUMP CELLULITIS TECHNIQUE: Real-time scanning was performed of the left thigh, with image documentation. COMPARISON: None. FINDINGS: At the area of concern, there is a heterogenous complex fluid collection measuring overall 3.0 x 2.4 x 0.6 cm it. IMPRESSION: Multiloculated 3 cm subcutaneous fluid collection at the area of concern. Differential includes cellu litis, developing abscess sec, and resolving hematoma. Consider ultrasound-guided aspiration. Reviewed by: Kevin Varela MD on 10/26/2021 9:13 AM YOBANY Approved by: Kevin Varela MD on 10/26/2021 9:13 AM YOBANY Station ID: [id number]
== END 2021-10-26 08:03 | disposition home or self-care (01) ==
LOC: DI 08:02
PROVIDERS: ATTEND Internal Medicine Hematology & Oncology
DX: L03.116 Cellulitis of left lower limb (principal); D47.3 Essential (hemorrhagic) thrombocythemia

== ENCOUNTER 2021-10-28 09:35 | Outpatient (CLI) | payer MEDICARE, OTHER ==
[2021-10-28 10:16] LABS: INR 1.1 (0.8-1.2); PT - PROTHROMBIN TIME 11.9 secs (9.9-12.6)
[2021-10-28] MEDS ORDERED: LIDOCAINE-MPF 1% 10 ML AMP ONE ×2 (10:19)
[2021-10-28 10:23] LABS: PARTIAL THROMBOPLASTIN TIME 33.6 secs (24.9-33.3)
[2021-10-28] MEDS ORDERED: MIDAZOLAM 2 MG/2 ML VIAL ONE (10:30)
[2021-10-28] MEDS ORDERED: fentaNYL 100 MCG/2 ML VIAL ONE (10:30)
[2021-10-28] MEDS ORDERED: LACTATED RINGERS 1,000 ML IV ONE ×2 (10:30→12:35)
[2021-10-28] MEDS ORDERED: LIDOCAINE-MPF 1% 10 ML AMP SUBQ ONE (12:40)
--- NOTE | 2021-10-28 13:07 | CT Report ---
PROCEDURE: BONE MARROW BX W/ASPIRATION Sedation analgesia for 20 minutes. INDICATIONS: THOMBOCYTOSIS, LEUKOCYTOSIS TECHNIQUE: The indications, alternatives, benefits, risks, and possible complications of the procedure were comm unicated to the patient. Informed written consent from the patient was obtained and placed in the art. Continuous EKG and hemodynamic monitoring was started by trained personnel. For radiation dose reduction, the following was used: automated exposure control, adjustment of mA and/or kV according to patient size. The patient was brought to the CT suite and sand miller spiral CT imaging was performed with localization g rid. The appropriate site for percutaneous access to the biopsy target was marked, was prepped and d raped sterilely, and was infused with local anaesthesia. Under CT guidance, a core biopsy trocar and needle set was advanced to the biopsy target, and specimen(s) were obtained. The trocar and needle were then removed, and the patient was sent for post-procedure monitoring. COMPARISON: None. FINDINGS: Biopsy site: Left iliac bone marrow Needle: 14-gauge gauge biopsy needle with introducer trocar. Number of passes: 1 with aspiration Medications: 1% lidocaine for local anaesthesia. IV Fentanyl and Versed for conscious sedation for 20 minutes (see nursing record). Complications: None. IMPRESSION: Successful CT-guided biopsy of left iliac bone mineral with aspiration. Reviewed by: Michelle Braun MD, PhD on 10/28/2021 1:06 PM PDT Approved by: Michelle Braun MD, PhD on 10/28/2021 1:06 PM PDT Station ID: [id number]
[2021-10-28 14:17] VITALS: BP 130/54
== END 2021-10-28 09:36 | disposition home or self-care (01) ==
LOC: DI 09:35
PROVIDERS: ATTEND Internal Medicine Hematology & Oncology
DX: D72.829 Elevated white blood cell count, unspecified (principal); D69.6 Thrombocytopenia, unspecified
CPT/HCPCS: 36415; 38222; 85049; 85610; 85730; J7120

== ENCOUNTER 2021-11-03 14:53 | Outpatient (CLI) | payer MEDICARE, OTHER | END 2021-11-03 14:54 | disposition home or self-care (01) | LOC: LAB.R 14:53 | PROVIDERS: ATTEND Surgery | DX: L02.416 Cutaneous abscess of left lower limb (principal) | CPT/HCPCS: 87070; 87205 ==

== ENCOUNTER 2023-01-17 09:11 | Emergency (ER) | payer MEDICARE, OTHER ==
--- NOTE | 2023-01-17 09:15 | ED Physician Documentation ---
PD HPI URI - Stated complaint Stated Complaint: SOA,COUGH,CHEST PX, - History obtained from History obtained from: Patient - History of Present Illness Timing - onset: How many days ago (4-5) Timing duration: Days Timing details: Gradual onset, Still present Associated symptoms: Fever (2 days), Nasal congestion, Sore throat, Productive cough, Chest pain. No: Dyspnea, NVD Contributing factors: No: Sick contact, Travel, COPD / asthma Similar symptoms before: Has not had sx before Recently seen: Not recently seen Review of Systems Constitutional: reports: Fever (the past 1-2 days) Nose: reports: Rhinorrhea / runny nose, Congestion Throat: reports: Sore throat Cardiac: reports: Chest pain / pressure (hurts with coughing) Respiratory: reports: Cough. denies: Hemoptysis, Wheezing GI: denies: Vomiting, Diarrhea PD PAST MEDICAL HISTORY - Past Medical History Cardiovascular: Hypertension, High cholesterol, Peripheral Vascular Disease, Deep vein thrombosis Respiratory: None Neuro: TIA Endocrine/Autoimmune: None GI: Hiatal hernia, Hemorrhoids : None Psych: None Musculoskeletal: Osteoporosis Derm: Eczema - Past Surgical History Past Surgical History: No HEENT: Cataracts, Tonsil/Adenoidectomy - Present Medications Home Medications: Ambulatory Orders Medication Instructions Recorded Confirmed lisinopriL [Lisinopril] 10 mg PO DAILY PM 07/26/19 11/18/22 Atorvastatin Calcium 40 mg PO HS 07/06/21 11/18/22 Gabapentin [Neurontin] 300 mg PO BID 07/06/21 11/18/22 Metoprolol Succinate [Toprol Xl] 75 mg PO DAILY 07/06/21 11/18/22 amLODIPine [Norvasc] 5 mg PO DAILY 07/06/21 11/18/22 Ascorbic Acid [Vitamin C] 500 mg PO DAILY 10/22/21 11/18/22 Aspirin [Vazalore] 81 mg PO DAILY 10/22/21 11/18/22 Calcium Carb/Mag Ox/Zinc Sulf 1 each PO DAILY 10/22/21 11/18/22 [Hdp-Fel-Eblr 334-134-5 mg Tab] Cholecalciferol (Vitamin D3) 50 mcg PO DAILY 10/22/21 11/18/22 [Vitamin D3] Hydroxyurea [Hydrea] 1 cap PO DAILY 04/08/22 05/05/23 Multivitamin 1 each PO DAILY 10/22/21 11/18/22 Albuterol Sulf [Ventolin Hfa 2 puffs INH QID #1 each 01/17/23 Inhaler] Azithromycin [Zithromax] 0 mg PO DAILY #6 tablet 01/17/23 Benzonatate [Tessalon] 100 mg PO TID PRN #20 cap 01/17/23 - Allergies Allergies/Adverse Reactions: Allergies Allergy/AdvReac Type Severity Reaction Status Date / Time Beta-Blockers Allergy Itching Verified 06/21/21 11:11 (Beta-Adrenergic Bloc latex Allergy Itching Verified 08/01/19 12:44 Penicillins Allergy Unknown Verified 08/01/19 12:44 tramadol AdvReac Emesis Verified 07/06/21 15:52 - Social History Does the pt smoke?: No Smoking Status: Never smoker Does the pt drink ETOH?: Yes Does the pt have substance abuse?: No - Immunizations Immunizations are current?: Yes PD ED PE NORMAL - Vitals Vital signs reviewed: Yes - General General: Alert and oriented X 3, No acute distress, Well developed/nourished - HEENT HEENT: Moist mucous membranes, Pharynx benign - Neck Neck: Supple, no meningeal sign, No adenopathy - Cardiac Cardiac: RRR, No murmur - Respiratory Respiratory: No respiratory distress, Other (no coarse sounds. some scattered wheezes/squeaks heard. productive white sputum with cough here in ED. No blood. ) Results - Vitals Vitals: Vital Signs - 24 hr 01/17/23 01/17/23 09:22 10:05 Temperature 99.1 C H Heart Rate 85 81 Respiratory 18 15 Rate Blood Pressure 135/55 H 136/81 H O2 Saturation 98 98 Oxygen O2 Source Room air PD Medical Decision Making - ED course Complexity details: considered differential, d/w patient ED course: The patient has had some congestion, sore throat, cough with increasing cough and a yellowish thicker sputum production. This reasonably may be all a viral illness. However she does have history of congestion and seasonal allergies and did not feel ill initially but does now as the cough increases. Consideration would be congestion with a secondary bronchitis. Shared decision is for combination of medication for cough as well as an inhaler to help with better breathing as there is some scattered wheezing. We did conclude on antibiotic for this with the potential of a bacterial infection. She is allergic to penicillin so opted on azithromycin. She did not have any congested sounds and her oxygenation was 98% on room air. Considered but did not see a need for chest x-ray. Departure - Departure Disposition: 01 Home, Self Care Clinical Impression: Upper respiratory infection Qualifiers: URI type: unspecified URI Qualified Code(s): J06.9 - Acute upper respiratory infection, unspecified Bronchitis, acute Qualifiers: Bronchitis organism: unspecified organism Qualified Code(s): J20.9 - Acute bronchitis, unspecified Condition: Stable Instructions: ED Upper Resp Infec Abx Tx Follow-Up: Shima Barroso ARNP [Primary Care Provider] - Prescriptions: Benzonatate [Tessalon] 100 mg PO TID PRN #20 cap PRN Reason: Cough Albuterol Sulf [Ventolin Hfa Inhaler] 2 puffs INH QID #1 each Azithromycin [Zithromax] 0 mg PO DAILY #6 tablet Comments: Stay well-hydrated. Continue usual medications. Your illness may be all viral in which case the symptom medications for cough and breathing will still be helpful. Your symptoms sound as though there may be a bacterial component to the bronchitis rather than just viral so an antibiotic may be useful. I wrote prescriptions for azithromycin (Zithromax) which is an antibiotic. Also for benzonatate/Tessalon to help with cough. He can still use Robitussin cough medicine as well. Both of these will be moderate in their affect so what ever helps. Additionally an albuterol inhaler 2 puffs several times daily often will help with reducing cough and improving sputum out. Tylenol if needed for fevers or pains. I would anticipate improvement over the next several days. Recheck if worsening. I sent the prescriptions to [facility] in [place]. Discharge Date/Time: 01/17/23 10:07
[2023-01-17 10:13] VITALS: BP 136/81
== END 2023-01-17 10:07 | disposition home or self-care (01) ==
LOC: ED 09:11
DX: J06.9 Acute upper respiratory infection, unspecified (principal); J20.9 Acute bronchitis, unspecified; I10 Essential (primary) hypertension; E78.00 Pure hypercholesterolemia, unspecified; Z79.899 Other long term (current) drug therapy; Z79.82 Long term (current) use of aspirin
CPT/HCPCS: 99281; 99284

== ENCOUNTER 2023-10-02 13:29 | Outpatient (CLI) | payer MEDICARE, OTHER ==
[2023-10-02 14:00] LABS: CHOL/HDL RATIO 2.5 (<4.4); CHOLESTEROL 124 mg/dL; HDL CHOLESTEROL 50 mg/dL; LDL CHOLESTEROL,CALCULATED 29 mg/dL; LDL/HDL RATIO 0.6 (<4.4); TRIGLYCERIDES 226 mg/dL (48-352); VLDL CHOLESTEROL 45 mg/dL
[2023-10-02 14:11] LABS: ESTIMATED AVERAGE GLUCOSE 117 mg/dL (70-100); HEMOGLOBIN A1c% 5.7 % (4.27-6.07)
== END 2023-10-02 13:30 | disposition home or self-care (01) ==
LOC: LAB 13:29
PROVIDERS: ATTEND Nurse Practitioner Family
DX: E78.5 Hyperlipidemia, unspecified (principal); R63.5 Abnormal weight gain
CPT/HCPCS: 36415; 80061; 83036; 83721

== ENCOUNTER 2024-01-03 08:04 | Outpatient (CLI) | payer MEDICARE, OTHER ==
[2024-01-03 12:06] LABS: ESTIMATED AVERAGE GLUCOSE 123 mg/dL (70-100); HEMOGLOBIN A1c% 5.9 % (4.27-6.07)
[2024-01-03 12:12] LABS: BUN - BLOOD UREA NITROGEN 27 mg/dL (6-20); CALCIUM 9.7 mg/dL (8.5-10.3); CARBON DIOXIDE - CO2 27 mmol/L (21-32); CHLORIDE 104 mmol/L (101-111); CHOL/HDL RATIO 2.6 (<4.4); CHOLESTEROL 113 mg/dL; CREATININE 0.8 mg/dL (0.6-1.3); GFR - MDRD 68 (>89); GLUCOSE 100 mg/dL (74-104); HDL CHOLESTEROL 44 mg/dL; LDL CHOLESTEROL,CALCULATED 42 mg/dL; POTASSIUM 4.5 mmol/L (3.5-4.5); SODIUM 137 mmol/L (135-145); TRIGLYCERIDES 137 mg/dL (48-352); VLDL CHOLESTEROL 27 mg/dL
== END 2024-01-03 08:05 | disposition home or self-care (01) ==
LOC: LAB.N 08:04
PROVIDERS: ATTEND Nurse Practitioner Family
DX: I10 Essential (primary) hypertension (principal); R63.5 Abnormal weight gain; E78.5 Hyperlipidemia, unspecified
CPT/HCPCS: 36415; 80048; 80061; 83036; 83721